=== PATIENT | female | born 1970 | race Caucasian/White ===

== ENCOUNTER 2016-05-15 15:54 | Outpatient (CLI) | payer MEDICAID | END 2016-05-15 15:55 | disposition home or self-care (01) | DX: M51.36 Other intervertebral disc degeneration, lumbar region (principal) ==

== ENCOUNTER 2016-05-19 09:25 | Outpatient (CLI) | payer MEDICAID | END 2016-05-19 09:26 | disposition home or self-care (01) | DX: E66.9 Obesity, unspecified (principal) ==

== ENCOUNTER 2016-12-10 14:25 | Outpatient (CLI) | payer MEDICAID ==
--- NOTE | 2016-12-11 09:23 | XRAY Report ---
THREE-VIEW BILATERAL KNEES: 12/10/2016 CLINICAL INDICATION: Bilateral pain. FINDINGS: AP, lateral, sunrise views of the bilateral knees demonstrate no evidence of fracture or d islocation. The joint spaces are preserved. No effusion is present on either side. IMPRESSION: NORMAL BILATERAL KNEES. JOB #: [id number] EXT JOB #:[id number]
== END 2016-12-10 14:26 | disposition home or self-care (01) ==
LOC: DI.N 14:25
PROVIDERS: ATTEND Physician Assistant
DX: M25.561 Pain in right knee (principal); M25.562 Pain in left knee
CPT/HCPCS: 73565

== ENCOUNTER 2017-03-04 15:10 | Outpatient (CLI) | payer MEDICAID ==
--- NOTE | 2017-03-05 11:08 | XRAY Report ---
THREE-VIEW LEFT FOOT: 03/04/2017 CLINICAL INDICATION: Left foot pain. FINDINGS: AP, lateral, oblique views of the left foot demonstrate no evidence of fracture or disloca tion. Plantar and posterior calcaneal spurring is present. There is no evidence of fracture or disl ocation. No foreign body is seen. IMPRESSION: DEGENERATIVE CHANGES. NO EVIDENCE OF FRACTURE. JOB #: [id number] EXT JOB #:[id number]
== END 2017-03-04 15:11 | disposition home or self-care (01) ==
LOC: DI.N 15:10
PROVIDERS: ATTEND Physician Assistant Medical
DX: M19.072 Primary osteoarthritis, left ankle and foot (principal)

== ENCOUNTER 2017-05-14 14:23 | Emergency (ER) | payer MEDICAID ==
--- NOTE | 2017-05-14 15:20 | ED Physician Documentation ---
PD HPI HEADACHE - Stated complaint Stated Complaint: MIGRAINE - Chief complaint Chief Complaint: Neuro - History obtained from History obtained from: Patient - History of Present Illness Timing - onset: Yesterday Timing - onset during: Light activity Timing - duration: Days (04/21) Timing - details: Gradual onset, Still present Worst headache ever?: No: Worst headache ever? Location: Back, Left Quality: Throbbing, Aching Associated symptoms: Nausea, Vomiting, Vision changes (left eye blurred vision) . No: Fever, Stiff neck Improved by: Rest, Dark room Worsened by: Light, Noise Contributing factors: No: Anticoagulated, Possible carbon monoxide, Recent illness, Trauma Similar symptoms before: Diagnosis (migraine headaches but not for few years. Feels similar to those) Recently seen: Not recently seen Review of Systems Constitutional: denies: Fever, Chills Nose: denies: Rhinorrhea / runny nose, Congestion Throat: denies: Sore throat Respiratory: denies: Cough GI: reports: Nausea, Vomiting. denies: Abdominal Pain, Diarrhea Skin: denies: Rash, Lesions Musculoskeletal: reports: Neck pain (left side posteriorly). denies: Back pain Neurologic: reports: Headache. denies: Focal weakness, Numbness, Confused, Altered mental status, Head injury PD PAST MEDICAL HISTORY - Past Medical History Past Medical History: Yes Neuro: Headache/migraine Musculoskeletal: Fibromyalgia Other Past Medical History: bone spur - Past Surgical History /ASSISTED LIVING DIRECTOR: Hysterectomy - Present Medications Home Medications: Ambulatory Orders Medication Instructions Recorded Confirmed Dexamethasone [Decadron] 4 mg PO DAILY #5 tablet 05/14/17 HYDROcod/ACETAM 5/325 [Silvis 5/325] 1 tab PO Q6H PRN #12 tablet 05/14/17 Ondansetron Odt [Zofran] 4 mg TL Q6H PRN #15 tablet 05/14/17 - Allergies Allergies/Adverse Reactions: Allergies Allergy/AdvReac Type Severity Reaction Status Date / Time Sulfa (Sulfonamide Allergy Unknown Verified 05/14/17 14:35 Antibiotics) - Social History Does the pt smoke?: No Smoking Status: Former smoker Does the pt drink ETOH?: No Does the pt have substance abuse?: No Substance Use and Type: Marijuana - Immunizations Immunizations are current?: Yes PD ED PE NORMAL - Vitals Vital signs reviewed: Yes - General General: Alert and oriented X 3, Well developed/nourished, Other (appears uncomfortable and light sensitive. Has tender spot left posterior neck at trapezius insertion area. No noted rash nor sores. 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, No motor deficit, No sensory deficit, Normal speech, Other Eye Opening: Spontaneous Motor: Obeys Commands Verbal: Oriented GCS Score: 15 - Psych Psych: Normal mood, Normal affect Results - Vitals Vitals: Vital Signs - 24 hr 05/14/17 05/14/17 05/14/17 14:32 16:19 18:05 Temperature 36.6 C 36.4 C L Heart Rate 89 70 81 Respiratory 18 12 14 Rate Blood Pressure 134/91 H 123/72 118/84 H O2 Saturation 98 96 97 Oxygen O2 Source Room air PD MEDICAL DECISION MAKING - ED course Complexity details: re-evaluated patient (improved with migraine targeted IV meds but not completely well so gave some pain meds too. Also trigger point injection left upper trapezius with Marcaine at point of tenderness. ), considered differential, d/w patient Departure - Departure Disposition: 01 Home, Self Care Clinical Impression: Headache, acute Qualifiers: Headache type: unspecified Intractability: not intractable Qualified Code(s): R51 - Headache Migraine Qualifiers: Migraine type: without aura Status migrainosus presence: without status migrainosus Intractability: not intractable Qualified Code(s): G43.009 - Migraine without aura, not intractable, without status migrainosus Condition: Stable Record reviewed to determine appropriate education?: Yes Instructions: ED Cephalgia Unspecified, ED Headache Migraine Follow-Up: Romain Elmore PA-C [Primary Care Provider] - Prescriptions: Dexamethasone [Decadron] 4 mg PO DAILY #5 tablet HYDROcod/ACETAM 5/325 [Silvis 5/325] 1 tab PO Q6H PRN #12 tablet PRN Reason: Pain Ondansetron Odt [Zofran] 4 mg TL Q6H PRN #15 tablet PRN Reason: Nausea / Vomiting Comments: This sounds like a migraine headache. As such it should continue tapering down and be away later in into tomorrow. You can use Decadron daily for the next few days if it has some mild persistence. Ondansetron if needed for nausea. Add Tylenol or hydrocodone if needed for residual headache. Recheck if not completely resolved over the next couple of days. Recheck if other symptoms develop to suggest other etiologies (such as fever, rash, focal weakness, etc.). Discharge Date/Time: 05/14/17 18:36
[2017-05-14] MEDS ORDERED: KETOROLAC 60 MG/2 ML VIAL IVP STA (15:32)
[2017-05-14] MEDS ORDERED: SODIUM CHLORIDE 0.9% 1,000 ML IV ONE (15:32)
[2017-05-14] MEDS ORDERED: METOCLOPRAMIDE 10 MG/2 ML VIAL IVP STA (15:32)
[2017-05-14] MEDS ORDERED: diphenhydrAMINE INJ 50 MG/ML VIAL IVP STA (15:32)
[2017-05-14] MEDS ORDERED: HYDROmorphone 1 MG/ML SYRINGE IVP STA (17:04)
[2017-05-14] MEDS ORDERED: DEXAMETHASONE 10 MG/ML VIAL IVP STA (17:05)
[2017-05-14 18:06] VITALS: BP 118/84
== END 2017-05-14 18:36 | disposition home or self-care (01) ==
LOC: ED 14:23
DX: G43.009 Migraine without aura, not intractable, without status migrainosus (principal); Z87.891 Personal history of nicotine dependence
CPT/HCPCS: 96361; 96374; 96375; 99283; J1170